=== PATIENT | female | born 1995 | race Two or more races ===

== ENCOUNTER 2017-11-28 08:34 | Emergency (ER) | payer SELFPAY ==
[2017-11-28 08:48] LABS: URINE HCG POC HCG NEGATIVE (Negative)
[2017-11-28 08:53] LABS: BILIRUBIN,URINE NEGATIVE (NEG); CLARITY,URINE CLEAR; COLOR,URINE YELLOW; GLUCOSE,URINE NEGATIVE (NEG); NITRITE,URINE NEGATIVE (NEG); PROTEIN,URINE NEGATIVE (NEG-TRACE); UROBILINOGEN,URINE 0.2 mg/dL (0.2 mg/dL)
[2017-11-28 09:14] LABS: BACTERIA,URINE FEW /HPF (0-FEW); RBC,URINE 0 /HPF (0-2); WBC,URINE RARE /HPF (0-4)
== END 2017-11-28 10:21 | disposition home or self-care (01) ==
LOC: ER 10:21
DX: N93.8 Other specified abnormal uterine and vaginal bleeding (principal)
CPT/HCPCS: 81001; 81025; 87086; 99284; Q0111

== ENCOUNTER 2018-05-09 10:58 | Emergency (ER) | payer OTHER ==
[~2018-05-09] VITALS: Ht 160 cm; Wt 80.7 kg
[2018-05-09 11:22] VITALS: BP 123/70
[2018-05-09 11:51] LABS: BILIRUBIN,URINE SMALL (NEG); CLARITY,URINE CLEAR; COLOR,URINE AMBER; NITRITE,URINE NEGATIVE (NEG); PH,URINE 6.5; PROTEIN,URINE 30 mg/dL (NEG-TRACE)
[2018-05-09 11:58] LABS: BACTERIA,URINE MODERATE /HPF (0-FEW); RBC,URINE 0 /HPF (0-2); SQUAMOUS EPITHELIAL CELL,UR MOD /LPF
--- NOTE | 2018-05-09 12:26 | PHYS DOC ---
Past Medical History Past Medical History: No Pertinent History Past Surgical History: No Surgical History Alcohol Use: None Drug Use: None Adult General Chief Complaint Chief Complaint: SORE THROAT HPI HPI Patient is a 22 year old female 2 para 1 currently 7 months presenting today complaining of mild lower abdominal pain, sore throat, gum swelling, symptoms ongoing for roughly 2 days. Denies any vaginal bleeding. She states she follows up with Dr. Jeffries for her , last seen 2 weeks ago. Patient denies any fever. Review of Systems Review of Systems Constitutional: Denies fever or chills [] Eyes: Denies change in visual acuity, redness, or eye pain [] HENT: Reports sore throat with gum swelling, Denies nasal congestion Respiratory: Denies cough or shortness of breath [] Cardiovascular: No additional information not addressed in HPI [] GI: Denies abdominal pain, nausea, vomiting, bloody stools or diarrhea [] : Denies dysuria or hematuria [] Musculoskeletal: Reports low back pain, denies joint pain [] Integument: Denies rash or skin lesions [] Neurologic: Denies headache, focal weakness or sensory changes [] All other systems were reviewed and found to be within normal limits, except as documented in this note. Allergies Allergies Allergies Coded Allergies Type Severity Reaction Last Updated Verified No Known Drug Allergies 11/28/17 No Physical Exam Physical Exam Constitutional: Well developed, well nourished, no acute distress, non-toxic appearance. [] HENT: Normocephalic, atraumatic, bilateral external ears normal, oropharynx moist, no oral exudates, nose normal. [] gums are erythematous, posterior pharynx with mild to moderate erythema no exudate Eyes: PERRLA, EOMI, conjunctiva normal, no discharge. [] Neck: Normal range of motion, no tenderness, supple, no stridor. [] Cardiovascular:Heart rate regular rhythm, no murmur [] Lungs & Thorax: Bilateral breath sounds clear to auscultation [] Abdomen: Bowel sounds normal, soft, no tenderness, no masses, no pulsatile masses. [] Skin: Warm, dry, no erythema, no rash. [] Back: No tenderness, no CVA tenderness. [] Extremities: No tenderness, no cyanosis, no clubbing, ROM intact, no edema. [] Neurologic: Alert and oriented X 3, normal motor function, normal sensory function, no focal deficits noted. [] Psychologic: Affect normal, judgement normal, mood normal. [] Current Patient Data Vital Signs Vital Signs Date Time Temp Pulse Resp B/P (MAP) Pulse Ox O2 Delivery O2 Flow Rate FiO2 05/09/18 11:22 98.1 110 18 123/70 (87) 100 Room Air 98.1 Lab Values Laboratory Tests Test 05/09/18 11:32 Urine Collection Type Void Urine Color Vivi Urine Clarity Clear Urine pH 6.5 Urine Specific [place] >=1.030 Urine Protein 30 mg/dL (NEG-TRACE) Urine Glucose (UA) Negative mg/dL (NEG) Urine Ketones (Stick) >=80 mg/dL (NEG) Urine Blood Negative (NEG) Urine Nitrite Negative (NEG) Urine Bilirubin Small (NEG) Urine Urobilinogen Dipstick 1.0 mg/dL (0.2 mg/dL) Urine Leukocyte Esterase Trace (NEG) Urine RBC 0 /HPF (0-2) Urine WBC 5-10 /HPF (0-4) Urine Squamous Epithelial Cells Mod /LPF Urine Bacteria Moderate /HPF (0-FEW) Urine Mucus Marked /LPF EKG EKG [] Radiology/Procedures Radiology/Procedures [] Course & Med Decision Making Course & Med Decision Making Pertinent Labs and Imaging studies reviewed. (See chart for details) This is a 22-year-old female patient currently 7 months presenting to the ED with multiple complaints including low back pain, sore throat, gum swelling. Physical exam consistent with pharyngitis, gingivitis, urine has small amount of infection that appears contaminated. We'll put patient on amoxicillin. Follow-up with [facility] next week. Dragon Disclaimer Dragon Disclaimer This electronic medical record was generated, in whole or in part, using a voice recognition dictation system. Departure Departure Impression: Primary Impression: Additional Impressions: UTI (urinary tract infection) Pharyngitis, acute Gingivitis, acute Disposition: 01 HOME, SELF-CARE Condition: STABLE Referrals: NO PCP (PCP) JYOTI JEFFRIES Jr, MD follow up in one week Patient Instructions: Gingivitis, [id number], Urinary Tract Infection, Viral and Bacterial Pharyngitis Additional Instructions: We'll put you on antibiotics to take care of your infections. Ensure you complete them. Contact the provided dentist use saltwater gargles, take Tylenol for pain. Try and follow-up with a dentist as soon as possible. Scripts Amoxicillin (AMOXICILLIN) 875 Mg Tablet 1 TAB PO BID, #20 TAB Prov: CHANTE MYRICK APRN 05/09/18 Problem Qualifiers Primary Impression: Weeks of gestation: 21 weeks Qualified Codes: Z3A.21 - 21 weeks gestation of Additional Impressions: UTI (urinary tract infection) Urinary tract infection type: site unspecified Hematuria presence: without hematuria Qualified Codes: N39.0 - Urinary tract infection, site not specified Pharyngitis, acute Pharyngitis/tonsillitis etiology: unspecified etiology Qualified Codes: J02.9 - Acute pharyngitis, unspecified CHANTE MYRICK APRN May 09, 2018 12:26
[2018-05-09] MEDS ORDERED: AMOX875T PO (12:34)
== END 2018-05-09 12:49 | disposition home or self-care (01) ==
LOC: ER 10:58
DX: O23.42 Unspecified infection of urinary tract in pregnancy, second trimester (principal); J02.9 Acute pharyngitis, unspecified; K05.00 Acute gingivitis, plaque induced; Z3A.21 21 weeks gestation of pregnancy
CPT/HCPCS: 81001; 87086; 99284